=== PATIENT | female | born 1990 ===

== ENCOUNTER 2021-03-23 00:56 | Observation (INO) | payer MEDICAID ==
[2021-03-23] MEDS ORDERED: SODIUM CHLORIDE 0.9% 1000 ML 1,000 ML IV ONE (01:42)
[2021-03-23] MEDS ORDERED: ONDANSETRON 4 MG/2 ML INJ IV ONE (01:44)
[2021-03-23] MEDS ORDERED: CHARCOAL/SORBITOL SOLUTION 25 GM/120 ML PO ONE (01:44)
--- NOTE | 2021-03-23 01:57 | Emergency Department Report ---
HPI - General Chief Complaint: Overdose Time Seen by Provider: 03/23/21 01:34 - HPI HPI: This is a 30-year-old female presents to the emergency department via EMS with a complaint of swallowing a baggy with about 3 g of heroin in it. The patient was in a car with 2 other individuals when they were approached and pulled over by PD. Apparently as PD approached them they each swallowed a bag of heroin. At the time of my examination the patient complains of some nausea without vomiting and generalized abdominal pain. She denies any past medical history. She did not take anything, nor was given anything, for her symptoms prior to presentation. She denies any other past medical history. ED Past Medical Hx - Past Medical History Previous Medical History?: Yes Hx of Cancer: Yes (Cervical) - Surgical History Past Surgical History?: No - Social History Smoking Status: Never Smoker Substance Use Type: None ED Review of Systems ROS: Stated complaint: OVERDOSE Other details as noted in HPI Comment: All other systems reviewed and negative Constitutional: denies: chills, fever Eyes: denies: eye pain, vision change ENT: denies: ear pain, throat pain Respiratory: denies: cough, shortness of breath Cardiovascular: denies: chest pain, palpitations Gastrointestinal: abdominal pain, nausea. denies: vomiting Genitourinary: denies: dysuria, discharge Musculoskeletal: denies: back pain, arthralgia Skin: denies: rash, lesions Neurological: denies: headache, weakness Physical Exam - Physical Exam Vital Signs: Vital Signs 03/23/21 01:25 Temperature 97.8 F Pulse Rate 90 Respiratory 18 Rate Blood Pressure 129/86 [Left] O2 Sat by Pulse 100 Oximetry Physical Exam: GENERAL: The patient is ill-appearing. HENT: Normocephalic. Atraumatic. Patient has moist mucous membranes. EYES: Pupils constricted but equal reactive to light bilaterally. NECK: Supple. Trachea is midline. CHEST/LUNGS: Clear to auscultation. There is no respiratory distress noted. HEART/CARDIOVASCULAR: Regular. There is no tachycardia. There is no murmur. ABDOMEN: Abdomen is soft. Mild generalized abdominal tenderness to palpation. Patient has normal bowel sounds. There is no abdominal distention. SKIN: Skin is warm and dry. NEURO: The patient is very sleepy but is arousable. She will go right back to sleep if not continuously stimulated. Once awake the patient is oriented, AAO x3. MUSCULOSKELETAL: There is no tenderness or deformity. ED Course Vital Signs 03/23/21 01:25 Temperature 97.8 F Pulse Rate 90 Respiratory 18 Rate Blood Pressure 129/86 [Left] O2 Sat by Pulse 100 Oximetry - Consultations Consultation #1: 03/23/21 01:56 I spoke with and consulted poison control. I spoke with Shalonda who gave recomm endations on behalf of, and after speaking with, the telecommunication lines repairer on-call. They recommend giving the patient activated charcoal with sorbitol at 1 g/kg. They do not recommend giving the patient Narcan unless she develops respiratory depression. The telecommunication lines repairer recommends admission to the hospital for about 24 hours in the hopes that she will have 2 different bowel movements, or at least see the baggy of heroin come out. ED Medical Decision Making - Lab Data Result diagrams: 03/23/21 01:49 03/23/21 01:49 Lab Results 03/23/21 03/23/21 03/23/21 Range/Units 01:49 01:49 01:49 WBC 7.0 (4.5-11.0) K/mm3 RBC 4.57 (3.65-5.03) M/mm3 Hgb 13.9 (10.1-14.3) gm/dl Hct 42.1 (30.3-42.9) % MCV 92 (79-97) fl MCH 30 (28-32) pg MCHC 33 (30-34) % RDW 14.3 (13.2-15.2) % Plt Count 258 (140-440) K/mm3 Lymph % (Auto) 14.7 (13.4-35.0) % [place] % (Auto) 5.6 (0.0-7.3) % Eos % (Auto) 2.5 (0.0-4.3) % Baso % (Auto) 0.3 (0.0-1.8) % Lymph # (Auto) 1.0 L (1.2-5.4) K/mm3 [place] # (Auto) 0.4 (0.0-0.8) K/mm3 Eos # (Auto) 0.2 (0.0-0.4) K/mm3 Baso # (Auto) 0.0 (0.0-0.1) K/mm3 Seg Neutrophils % 76.9 H (40.0-70.0) % Seg Neutrophils # 5.4 (1.8-7.7) K/mm3 Sodium 139 (137-145) mmol/L Potassium 4.2 (3.6-5.0) mmol/L Chloride 101.7 (98-107) mmol/L Carbon Dioxide 29 (22-30) mmol/L Anion Gap 13 mmol/L BUN 10 (7-17) mg/dL Creatinine 0.8 (0.6-1.2) mg/dL Estimated GFR > 60 ml/min BUN/Creatinine Ratio 13 % Glucose 98 (65-100) mg/dL Calcium 9.4 (8.4-10.2) mg/dL Total Bilirubin 0.20 (0.1-1.2) mg/dL AST 16 (5-40) units/L ALT 13 (7-56) units/L Alkaline Phosphatase 107 (35-129) units/L Total Protein 7.3 (6.3-8.2) g/dL Albumin 4.5 (3.9-5) g/dL Albumin/Globulin Ratio 1.6 % HCG, Qual (Negative) Salicylates < 0.3 L (2.8-20.0) mg/dL Acetaminophen (10.0-30.0) ug/mL Plasma/Serum Alcohol (0-0.07) % 03/23/21 03/23/21 03/23/21 Range/Units 01:49 01:49 01:49 WBC (4.5-11.0) K/mm3 RBC (3.65-5.03) M/mm3 Hgb (10.1-14.3) gm/dl Hct (30.3-42.9) % MCV (79-97) fl MCH (28-32) pg MCHC (30-34) % RDW (13.2-15.2) % Plt Count (140-440) K/mm3 Lymph % (Auto) (13.4-35.0) % [place] % (Auto) (0.0-7.3) % Eos % (Auto) (0.0-4.3) % Baso % (Auto) (0.0-1.8) % Lymph # (Auto) (1.2-5.4) K/mm3 [place] # (Auto) (0.0-0.8) K/mm3 Eos # (Auto) (0.0-0.4) K/mm3 Baso # (Auto) (0.0-0.1) K/mm3 Seg Neutrophils % (40.0-70.0) % Seg Neutrophils # (1.8-7.7) K/mm3 Sodium (137-145) mmol/L Potassium (3.6-5.0) mmol/L Chloride (98-107) mmol/L Carbon Dioxide (22-30) mmol/L Anion Gap mmol/L BUN (7-17) mg/dL Creatinine (0.6-1.2) mg/dL Estimated GFR ml/min BUN/Creatinine Ratio % Glucose (65-100) mg/dL Calcium (8.4-10.2) mg/dL Total Bilirubin (0.1-1.2) mg/dL AST (5-40) units/L ALT (7-56) units/L Alkaline Phosphatase (35-129) units/L Total Protein (6.3-8.2) g/dL Albumin (3.9-5) g/dL Albumin/Globulin Ratio % HCG, Qual Negative (Negative) Salicylates (2.8-20.0) mg/dL Acetaminophen 5.0 L (10.0-30.0) ug/mL Plasma/Serum Alcohol < 0.01 (0-0.07) % - EKG Data -: EKG Interpreted by Md EKG shows normal: sinus rhythm, axis, intervals, QRS complexes, ST-T waves Rate: normal - EKG Data When compared to previous EKG there are: previous EKG unavailable Interpretation: normal EKG - Radiology Data Radiology results: image reviewed interpreted by me: Chest x-ray does not show any acute process. There are no pleural effusions, obvious pneumonia and there is no pneumothorax. No widened mediastinum. Abdominal x-ray shows nonspecific nonobstructive bowel gas. Increased stool volume. No obvious radiopaque foreign body. No free air. - Medical Decision Making This patient presents to the emergency department after swallowing a baggy of heroin, somewhere between 2 to 3 g, after she and 2 other friends/acquaintances were pulled over by PD. The patient is very sleepy but is arousable. Once awake she is oriented, but goes right back to sleep if not continuously stimulated. She complains of some generalized abdominal discomfort. Abdomen is soft, nondistended and nontoxic in appearance. Abdominal x-ray does not show any radiopaque foreign body or free air. There is increased stool volume. Nonspecific nonobstructive bowel gas. Poison control was contacted and the telecommunication lines repairer was consulted. He recommended giving activated charcoal and sorbitol, and keeping the patient for an observational admission. They did not recommend giving Narcan unless there are signs of respiratory depression. Patient's labs have been mostly unremarkable thus far including CBC, metabolic panel, acetaminophen/salicylate levels, blood alcohol level, and the patient is not . We are still waiting for a urine sample for urinalysis and UDS. Patient has been accepted for admission by the hospitalist, Dr. Capellan. Critical Care Time: No Critical care attestation.: If time is entered above; I have spent that time in minutes in the direct care of this critically ill patient, excluding procedure time. ED Disposition Clinical Impression: Heroin abuse, Encounter for observation for suspected toxic effect from ingested substance Heroin overdose Qualifiers: Encounter type: initial encounter Injury intent: undetermined intent Qualified Code(s): T40.1X4A - Poisoning by heroin, undetermined, initial encounter Disposition: DC-09 OP ADMIT IP TO THIS HOSP Is pt being admited?: Yes Condition: Fair Time of Disposition: 03:38
[2021-03-23 02:28] LABS: Basophils % (Auto) 0.3 % (0.0-1.8); Eosinophils # (Auto) 0.2 K/mm3 (0.0-0.4); Eosinophils % (Auto) 2.5 % (0.0-4.3); Hematocrit 42.1 % (30.3-42.9); Hemoglobin 13.9 gm/dl (10.1-14.3); Lymphocytes % (Auto) 14.7 % (13.4-35.0); Mean Corpuscular HGB Conc 33 % (30-34); Mean Corpuscular Volume 92 fl (79-97); Monocytes # (Auto) 0.4 K/mm3 (0.0-0.8); Monocytes % (Auto) 5.6 % (0.0-7.3); Platelet Count 258 K/mm3 (140-440); Red Blood Count 4.57 M/mm3 (3.65-5.03); Red Cell Distribution Width 14.3 % (13.2-15.2)
[2021-03-23 02:46] LABS: Alanine Aminotransferase 13 units/L (7-56); Albumin 4.5 g/dL (3.9-5); BUN/Creatinine Ratio 13; Blood Urea Nitrogen 10 mg/dL (7-17); Calcium 9.4 mg/dL (8.4-10.2); Hemolysis Index 3
[2021-03-23] MEDS ORDERED: MORPHINE 4 MG/1 ML INJ IV PRN (03:56)
[2021-03-23] MEDS ORDERED: ONDANSETRON 4 MG/2 ML INJ IV PRN (03:56)
[2021-03-23] MEDS ORDERED: ACETAMINOPHEN 325 MG TAB PO PRN (03:56)
[2021-03-23] MEDS ORDERED: MORPHINE 2 MG/1 ML INJ IV PRN (03:56)
[2021-03-23] MEDS ORDERED: SODIUM CHLORIDE 0.9% 1000 ML 1,000 ML IV SCH (04:00)
--- NOTE | 2021-03-23 04:07 | History and Physical Report ---
History of Present Illness Date of examination: 03/23/21 Date of admission: 03/23/2021 Chief complaint: Heroin ingestion History of present illness: 30-year-old female brought into the emergency room today with a complaint of swallowing a bag of about 3 g of heroin. Patient was pulled over by the police department while in the car with 2 other individuals. Patient was said to have swallowed a bag of heroin when she was approached by the police. She complains of nausea and some abdominal pain. Abdominal pain is generalized. Patient denies any chest pain or shortness of breath, no headache or dizziness, no diaphoresis. Patient denies any hematuria or dysuria. Denies any bloody stool. Upon arrival in the emergency room today, poison control was consulted patient was given activated charcoal with sorbitol. Narcan was not suggested unless patient develops respiratory depression. Recommendation was to admit patient for observation. Work-up to find the emergency room has been unremarkable. Past History Past Medical History: other (History of cervical cancer) Past Surgical History: No surgical history Social history: smoking (1 pack of tobacco daily), other (Uses heroin) Family history: no significant family history Medications and Allergies Allergies Allergy/AdvReac Type Severity Reaction Status Date / Time No Known Allergies Allergy Unverified 03/23/21 01:27 Review of Systems Constitutional: no fever, no chills Ears, nose, mouth and throat: no nasal congestion, no sore throat Cardiovascular: no chest pain, no palpitations Respiratory: no cough, no shortness of breath Gastrointestinal: abdominal pain, nausea, no vomiting, no diarrhea, no melena Genitourinary Female: no flank pain, no dysuria, no hematuria Musculoskeletal: no neck pain, no low back pain Integumentary: no rash, no pruritis Neurological: no headaches, no confusion Psychiatric: no anxiety, no depression Endocrine: no polydipsia, no polyuria, no nocturia Exam - Constitutional Vitals: Temp Pulse Resp BP Pulse Ox 97.8 F 90 14 129/86 100 03/23/21 01:25 03/23/21 01:25 03/23/21 02:28 03/23/21 01:25 03/23/21 01:25 General appearance: Present: no acute distress, well-nourished - EENT Eyes: Present: PERRL, EOM intact. Absent: scleral icterus ENT: hearing intact, clear oral mucosa, dentition normal - Neck Neck: Present: supple, normal ROM - Respiratory Respiratory effort: normal Respiratory: bilateral: CTA - Cardiovascular Rhythm: regular Heart Sounds: Present: S1 & S2. Absent: systolic murmur, diastolic murmur, rub, click - Extremities Extremities: no ischemia, pulses intact, pulses symmetrical, No edema, normal temperature, normal color, Full ROM Peripheral Pulses: within normal limits - Abdominal General gastrointestinal: Present: soft, tender (Mild right lower quadrant tenderness, no rebound tenderness and no guarding.), non-distended, normal bowel sounds. Absent: mass - Integumentary Integumentary: Present: clear, warm, dry. Absent: rash - Musculoskeletal Musculoskeletal: strength equal bilaterally - Psychiatric Psychiatric: appropriate mood/affect, intact judgment & insight, memory intact, cooperative - Neurologic Neurologic: CNII-XII intact, no focal deficits, moves all extremities Results - Labs CBC & Chem 7: 03/23/21 01:49 03/23/21 01:49 Labs: Abnormal lab results 03/23/21 03/23/21 03/23/21 Range/Units 01:49 01:49 01:49 Lymph # (Auto) 1.0 L (1.2-5.4) K/mm3 Seg Neutrophils % 76.9 H (40.0-70.0) % Salicylates < 0.3 L (2.8-20.0) mg/dL Acetaminophen 5.0 L (10.0-30.0) ug/mL Assessment and Plan - Patient Problems (1) Heroin overdose Current Visit: Yes Status: Acute Qualifiers: Encounter type: initial encounter Injury intent: undetermined intent Qualified Code(s): T40.1X4A - Poisoning by heroin, undetermined, initial encounter Plan to address problem: Patient admitted for observation. She has been given activated charcoal and sorbitol. We will continue to monitor vital signs closely. Meanwhile we will place on IV fluid normal saline. (2) DVT prophylaxis Current Visit: Yes Status: Acute Plan to address problem: Patient placed on sequential compression device. (3) Full code status Current Visit: Yes Status: Acute Plan to address problem: Patient is full code
[2021-03-23 05:48] LABS: Amphetamine Screen,Urine PRESUMPTIVE POSITIVE; Benzodiazepines Screen,Urine PRESUMPTIVE NEGATIVE; Cannabinoid Screen,Urine PRESUMPTIVE NEGATIVE; Cocaine Screen,Urine PRESUMPTIVE NEGATIVE; Methadone Screen,Urine PRESUMPTIVE NEGATIVE; Opiate Screen,Urine PRESUMPTIVE POSITIVE
[2021-03-23 05:50] LABS: Color,Urine Yellow (Yellow)
[2021-03-23 05:51] LABS: Bacteria,Urine 1+ /HPF (Negative); Bilirubin,Urine NEG (Negative); Blood,Urine NEG (Negative); Mucus,Urine FEW /HPF; Protein,Urine <15 mg/dL mg/dL (Negative); Urobilinogen,Urine < 2.0 mg/dL (<2.0)
[2021-03-23 06:14] VITALS: BP 103/60
--- NOTE | 2021-03-23 09:26 | Progress Note ---
Assessment and Plan Assessment and plan: Heroin overdose DVT prophylaxis 03/23/2021. Poison control was contacted and the inspector plumbing was consulted. He recommended giving activated charcoal and sorbitol, and keeping the patient for an observational admission. They did not recommend giving Narcan unless there are signs of respiratory depression. Patient's labs have been mostly unremarkable thus far including CBC, metabolic panel, acetaminophen/salicylate levels, blood alcohol level, and the patient is not . Continue to monitor on telemetry. History Interval history: No new issues Hospitalist Physical - Constitutional Vitals: Temp Pulse Resp BP Pulse Ox 97.8 F 80 20 103/60 96 03/23/21 01:25 03/23/21 06:11 03/23/21 06:18 03/23/21 06:11 03/23/21 06:11 General appearance: Present: no acute distress, well-nourished - EENT Eyes: Present: PERRL, EOM intact ENT: hearing intact, clear oral mucosa, dentition normal - Neck Neck: Present: supple, normal ROM - Respiratory Respiratory effort: normal Respiratory: bilateral: CTA - Cardiovascular Rhythm: regular Heart Sounds: Present: S1 & S2. Absent: gallop, rub - Extremities Extremities: no ischemia, No edema, Full ROM - Abdominal General gastrointestinal: soft, non-tender, non-distended, normal bowel sounds - Integumentary Integumentary: Present: clear, warm, dry - Neurologic Neurologic: CNII-XII intact, moves all extremities Results - Labs CBC & Chem 7: 03/23/21 01:49 03/23/21 01:49 Labs: Laboratory Last Values WBC 7.0 K/mm3 (4.5-11.0) 03/23/21 01:49 RBC 4.57 M/mm3 (3.65-5.03) 03/23/21 01:49 Hgb 13.9 gm/dl (10.1-14.3) 03/23/21 01:49 Hct 42.1 % (30.3-42.9) 03/23/21 01:49 MCV 92 fl (79-97) 03/23/21 01:49 MCH 30 pg (28-32) 03/23/21 01:49 MCHC 33 % (30-34) 03/23/21 01:49 RDW 14.3 % (13.2-15.2) 03/23/21 01:49 Plt Count 258 K/mm3 (140-440) 03/23/21 01:49 Lymph % (Auto) 14.7 % (13.4-35.0) 03/23/21 01:49 [place] % (Auto) 5.6 % (0.0-7.3) 03/23/21 01:49 Eos % (Auto) 2.5 % (0.0-4.3) 03/23/21 01:49 Baso % (Auto) 0.3 % (0.0-1.8) 03/23/21 01:49 Lymph # (Auto) 1.0 K/mm3 (1.2-5.4) L 03/23/21 01:49 [place] # (Auto) 0.4 K/mm3 (0.0-0.8) 03/23/21 01:49 Eos # (Auto) 0.2 K/mm3 (0.0-0.4) 03/23/21 01:49 Baso # (Auto) 0.0 K/mm3 (0.0-0.1) 03/23/21 01:49 Seg Neutrophils % 76.9 % (40.0-70.0) H 03/23/21 01:49 Seg Neutrophils # 5.4 K/mm3 (1.8-7.7) 03/23/21 01:49 Sodium 139 mmol/L (137-145) 03/23/21 01:49 Potassium 4.2 mmol/L (3.6-5.0) 03/23/21 01:49 Chloride 101.7 mmol/L (98-107) 03/23/21 01:49 Carbon Dioxide 29 mmol/L (22-30) 03/23/21 01:49 Anion Gap 13 mmol/L 03/23/21 01:49 BUN 10 mg/dL (7-17) 03/23/21 01:49 Creatinine 0.8 mg/dL (0.6-1.2) 03/23/21 01:49 Estimated GFR > 60 ml/min 03/23/21 01:49 BUN/Creatinine Ratio 13 % 03/23/21 01:49 Glucose 98 mg/dL (65-100) 03/23/21 01:49 Calcium 9.4 mg/dL (8.4-10.2) 03/23/21 01:49 Total Bilirubin 0.20 mg/dL (0.1-1.2) 03/23/21 01:49 AST 16 units/L (5-40) 03/23/21 01:49 ALT 13 units/L (7-56) 03/23/21 01:49 Alkaline Phosphatase 107 units/L (35-129) 03/23/21 01:49 Total Protein 7.3 g/dL (6.3-8.2) 03/23/21 01:49 Albumin 4.5 g/dL (3.9-5) 03/23/21 01:49 Albumin/Globulin Ratio 1.6 % 03/23/21 01:49 HCG, Qual Negative (Negative) 03/23/21 01:49 Urine Color Yellow (Yellow) 03/23/21 05:23 Urine Turbidity Slightly-cloudy (Clear) 03/23/21 05:23 Urine pH 6.0 (5.0-7.0) 03/23/21 05:23 Ur Specific [place] 1.013 (1.003-1.030) 03/23/21 05:23 Urine Protein <15 mg/dl mg/dL (Negative) 03/23/21 05:23 Urine Glucose (UA) Neg mg/dL (Negative) 03/23/21 05:23 Urine Ketones Neg mg/dL (Negative) 03/23/21 05:23 Urine Blood Neg (Negative) 03/23/21 05:23 Urine Nitrite Neg (Negative) 03/23/21 05:23 Urine Bilirubin Neg (Negative) 03/23/21 05:23 Urine Urobilinogen < 2.0 mg/dL (<2.0) 03/23/21 05:23 Ur Leukocyte Esterase Neg (Negative) 03/23/21 05:23 Urine WBC (Auto) 5.0 /HPF (0.0-6.0) 03/23/21 05:23 Urine RBC (Auto) 2.0 /HPF (0.0-6.0) 03/23/21 05:23 U Epithel Cells (Auto) 6.0 /HPF (0-13.0) 03/23/21 05:23 Urine Bacteria (Auto) 1+ /HPF (Negative) 03/23/21 05:23 Urine Mucus Few /HPF 03/23/21 05:23 Salicylates < 0.3 mg/dL (2.8-20.0) L 03/23/21 01:49 Urine Opiates Screen Presumptive positive 03/23/21 05:23 Urine Methadone Screen Presumptive negative 03/23/21 05:23 Acetaminophen 5.0 ug/mL (10.0-30.0) L 03/23/21 01:49 Ur Barbiturates Screen Presumptive negative 03/23/21 05:23 Ur Phencyclidine Scrn Presumptive negative 03/23/21 05:23 Ur Amphetamines Screen Presumptive positive 03/23/21 05:23 U Benzodiazepines Scrn Presumptive negative 03/23/21 05:23 Urine Cocaine Screen Presumptive negative 03/23/21 05:23 U Marijuana (THC) Screen Presumptive negative 03/23/21 05:23 Drugs of Abuse Note Disclamer 03/23/21 05:23 Plasma/Serum Alcohol < 0.01 % (0-0.07) 03/23/21 01:49 Osman/IV: Voiding Method Incontinent Active Medications - Current Medications Current Medications: Generic Name Dose Route Start Last Admin Trade Name Freq PRN Reason Stop Dose Admin Acetaminophen 650 mg 03/23/21 03:56 Acetaminophen 325 Mg Tab PO Q4H PRN Pain MILD(1-3)/Fever >100.5/GUTIERRES Sodium Chloride 1,000 mls @ 125 mls/hr 03/23/21 04:00 03/23/21 05:13 Nacl 0.9% 1000 Ml IV 125 mls/hr DIRECT ERIC Administration Ondansetron HCl 4 mg 03/23/21 03:56 Ondansetron 4 Mg/2 Ml Inj IV Q8H PRN Nausea And Vomiting Sodium Chloride 10 ml 03/23/21 10:00 Sodium Chloride 0.9% 10 Ml Flush Syringe IV BID ERIC Sodium Chloride 10 ml 03/23/21 03:56 Sodium Chloride 0.9% 10 Ml Flush Syringe IV PRN PRN LINE FLUSH
--- NOTE | 2021-03-23 09:44 | Discharge Summary ---
Providers - Providers Date of Admission: 03/23/21 03:56 Date of discharge: 03/23/21 Attending physician: OBED GUERRERO Primary care physician: FABIÁN GILMORE MD Hospitalization Reason for admission: Heroin overdose Condition: Fair Hospital course: 30-year-old female brought into the emergency room today with a complaint of swallowing a bag of about 3 g of heroin. Patient was pulled over by the police department while in the car with 2 other individuals. Patient was said to have swallowed a bag of heroin when she was approached by the police. She complains of nausea and some abdominal pain. Abdominal pain was generalized. Upon arrival in the emergency room today, poison control was consulted patient was given activated charcoal with sorbitol. Narcan was not suggested unless patient develops respiratory depression. Recommendation was to admit patient for observation. Patient's labs were mostly unremarkable thus far including CBC, metabolic panel, acetaminophen/salicylate levels, blood alcohol level, and the patient is not . The nurse informed me that the patient left AMA without signing any forms and unbeknownst to the staff before my evaluation. Dedicated discharge time 32 minutes. Disposition: DC-07 LEFT AGAINST MED ADVICE Final Discharge Diagnosis (Prints w/discharge instructions): Heroin overdose Core Measure Documentation - Palliative Care Palliative Care/ Comfort Measures: Not Applicable - Core Measures Any of the following diagnoses?: none Exam - Constitutional Vitals: Temp Pulse Resp BP Pulse Ox 97.8 F 80 20 103/60 96 03/23/21 01:25 03/23/21 06:11 03/23/21 06:18 03/23/21 06:11 03/23/21 06:11 - Cardiovascular Heart Sounds: Absent: rub, click - Abdominal Female genitourinary: Present: normal Plan Follow up with: FABIÁN GILMORE MD [Primary Care Provider] - 7 Days
--- NOTE | 2021-03-24 17:57 | Electrocardiograph Report ---
[facility] Test Date: 2021-03-23 Test Time: 02:08:58 Pat Name: CARIDAD MATHEW Department: Room: A479 1 Gender: F [employer]: CHANG : 1990 Requested By: JESSIKA SLOAN Order Number: [id number] Reading MD: Fransico Collier Measurements Intervals [place] Rate: 73 P: 52 SC: 148 QRS: 69 QRSD: 86 T: 56 QT: 369 QTc: 407 Interpretive Statements Sinus rhythm Normal ECG No previous ECG available for comparison Electronically Signed On 03-24-2021 17:56:55 EDT by Fransico Collier
--- NOTE | 2021-04-08 09:48 | XRay Report ---
Abdominal series with frontal chest INDICATION: Chest pain. IMPRESSION: Patchy bibasilar airspace opacities, nonspecific but could be secondary to aspiration Large amount of stool projecting throughout much of the colon. No radiopaque foreign body identified. Signer Name: Juan Smith MD Signed: 04/08/2021 9:43 AM Workstation Name: [id number]
== END 2021-03-23 08:15 | disposition left against medical advice (07) ==
LOC: ED 00:56 → 4A 03:56
PROVIDERS: ADMIT Internal Medicine Geriatric Medicine; ATTEND Hospitalist
DX: T40.1X4A Poisoning by heroin, undetermined, initial encounter (principal); Z87.891 Personal history of nicotine dependence; Z85.42 Personal history of malignant neoplasm of other parts of uterus
CPT/HCPCS: 36415; 74022; 80053; 80307; 81001; 84703; 85025; 93005; 96361; 96374; 99285; G0378; J2405; J7030; 80320; G0480